=== PATIENT | male | born 1995 | race Hispanic/Latino ===

== ENCOUNTER 2020-08-15 20:44 | Emergency (ER) | payer MEDICAID, OTHER ==
[2020-08-15] MEDS ORDERED: IOHEXOL 350 MG/ML 100ML INFUS..BTL IV ONE (20:54)
[2020-08-15 21:15] LABS: BASOPHILS % (AUTO) 0.3 % (0.0-5.0); EOSINOPHILS % (AUTO) 2.2 % (0.0-8.0); HEMATOCRIT 45.9 % (42-54); LYMPHOCYTES % (AUTO) 38.4 % (21.0-51.0); MEAN CORPUSCULAR HEMOGLOBIN 29.3 pg (27.0-33.0); MEAN CORPUSCULAR HGB CONC 34.6 g/dL (32.0-36.0); MEAN CORPUSCULAR VOLUME 84.7 fL (79-99); MONOCYTES % (AUTO) 9.9 % (3.0-13.0); NEUTROPHILS % (AUTO) 48.9 % (40.0-77.0); PLATELET COUNT (AUTO) 303 K/uL (130-400); RED BLOOD CELL COUNT(AUTO) 5.42 MIL/uL (4.50-6.20); RED CELL DISTRIBUTION WIDTH 12.6 % (11.0-15.5); WHITE BLOOD COUNT (AUTO) 9.4 K/uL (4.8-10.8)
[2020-08-15] MEDS ORDERED: ONDANSETRON HCL 4 MG/2 ML VIAL ONE (21:18)
[2020-08-15] MEDS ORDERED: MORPHINE SULFATE 4 MG/1ML SYG ONE (21:18)
[2020-08-15 21:26] LABS: CARBON DIOXIDE 26 mmol/L (21-32); CHLORIDE 104 mmol/L (101-111); CREATININE 1.3 mg/dL (0.5-1.5); GLOMERULAR FILTR. RATE CALC 72 mL/min (>60); GLUCOSE,RANDOM 129 mg/dL (70-105); SODIUM SERUM 141 mmol/L (136-145); UREA NITROGEN, BLOOD 13 mg/dL (7-18)
[2020-08-15 21:29] LABS: INR 0.97 (0.85-1.15); PROTHROMBIN TIME 10.6 SEC (9.6-11.6)
[2020-08-15] MEDS ORDERED: LIDOCAINE HCL 2% JELLY 5 ML ONE (21:29)
[2020-08-15 21:30] LABS: PARTIAL THROMBOPLASTIN TIME 23.4 SEC (26.3-35.5)
[2020-08-15] MEDS ORDERED: LACTATED RINGERS 1000ML 1,000 ML IV ONE (21:30)
[2020-08-15] MEDS ORDERED: TETANUS/DIPHTHERIA TOXOID [ADULT] 0.5 ML VIAL IM ONE ×2 (21:31→21:54)
[2020-08-15 21:38] LABS: ALANINE AMINOTRANSFERASE 25 U/L (12-78); ALBUMIN 3.7 g/dL (3.5-5.0); ALCOHOL, BLOOD < 3 mg/dL (0-10); ASPARTATE AMINOTRANSFERASE 16 U/L (10-37); BILIRUBIN,TOTAL 0.5 mg/dL (0.2-1.0); CREATINE KINASE, TOTAL 225 U/L (21-232); LIPASE 199 U/L (114-286); TOTAL PROTEIN, SERUM 6.8 g/dL (6.0-8.3)
[2020-08-15] MEDS ORDERED: FENTANYL CITRATE PF 50 MCG/1 ML 2ML VIAL ONE (21:40)
[2020-08-15] MEDS ORDERED: LIDOCAINE HCL 2% VISCOUS 15 ML UDCUP ONE (22:59)
[2020-08-15] MEDS ORDERED: HYDROMORPHONE 1 MG/1 ML AMP ONE (23:00)
[2020-08-15] MEDS ORDERED: ORPHENADRINE CITRATE 30 MG/ML ML ONE (23:00)
[2020-08-16] MEDS ORDERED: MORPHINE SULFATE 4 MG/1ML SYG ONE (00:16)
[2020-08-16] MEDS ORDERED: CEFAZOLIN SODIUM 1 GM VIAL ONE ×2 (00:16→00:27)
== END 2020-08-16 02:07 | disposition home or self-care (01) ==
LOC: EDH 20:44
DX: S50.812A Abrasion of left forearm, initial encounter (principal); S50.811A Abrasion of right forearm, initial encounter; S60.512A Abrasion of left hand, initial encounter; S60.511A Abrasion of right hand, initial encounter; S90.511A Abrasion, right ankle, initial encounter; S70.311A Abrasion, right thigh, initial encounter; S90.811A Abrasion, right foot, initial encounter; V86.59XA Driver of other special all-terrain or other off-road motor vehicle injured in nontraffic accident, initial encounter; Y93.89 Activity, other specified; Y92.89 Other specified places as the place of occurrence of the external cause; Y99.8 Other external cause status
CPT/HCPCS: 36415; 70450; 71260; 72125; 73090 ×2; 73130 ×2; 73610; 74177; 80053; 82550; 83690; 84484; 85025; 85610; 85730; 86850; 86900; 86901; 90471; 90714; 93005; 96361; 96365; 96375; 96376; 99291; J0690 ×2; J1170; J2270 ×2; J2360; J2405; J3010; J7120; Q9967

== ENCOUNTER 2020-10-01 08:51 | Emergency (ER) | payer SELFPAY ==
[~2020-10-01] VITALS: Ht 167.6 cm; Wt 74.8 kg
[2020-10-01 08:55] VITALS: BP 131/72
[2020-10-01] MEDS ORDERED: KETOROLAC 30MG VIAL (30MG/ML) IV SCH (09:45)
== END 2020-10-01 10:00 | disposition home or self-care (01) ==
LOC: EDH 08:51
DX: S10.91XA Abrasion of unspecified part of neck, initial encounter (principal); S89.92XA Unspecified injury of left lower leg, initial encounter; G40.909 Epilepsy, unspecified, not intractable, without status epilepticus; H11.33 Conjunctival hemorrhage, bilateral; F10.20 Alcohol dependence, uncomplicated; F41.9 Anxiety disorder, unspecified; Z56.0 Unemployment, unspecified; W18.39XA Other fall on same level, initial encounter; Y93.89 Activity, other specified; Y92.89 Other specified places as the place of occurrence of the external cause; Y99.8 Other external cause status
CPT/HCPCS: 93005